=== PATIENT | female | born 1995 | race Caucasian/White ===

== ENCOUNTER 2016-08-15 05:41 | Outpatient (CLI) | payer MEDICAID ==
[2016-08-15] MEDS ORDERED: LACTATED RINGERS 500 ML IV ONE ×2 (06:02→06:33)
[2016-08-15 06:08] VITALS: BP 103/55
[2016-08-15] MEDS ORDERED: LACTATED RINGERS 1,000 ML IV SCH (07:00)
[2016-08-15] MEDS ORDERED: TYLENOL PO PRN (07:25)
--- NOTE | 2016-08-15 07:31 | Ultrasound Report ---
BIOPHYSICAL PROFILE: History: Abdominal pain after fall. Technique: Transabdominal ultrasound with Doppler interrogation. 2 - breathing movements 2 - movements 2 - posture and tone 2 - Qualitative amniotic fluid volume 8 - TOTAL SCORE OF POSSIBLE 8 Heart Rate (bpm) 139
--- NOTE | 2016-08-15 07:32 | Ultrasound Report ---
OB LIMITED History: Abdominal pain after fall Technique: Transabdominal ultrasound with Doppler interrogation. Gestation: Single Position: Cephalic Amniotic Fluid: Normal CARMEN = 17.0 cm Placenta: Anterior Placental Grade: 1 Heart Rate: 139 BPM Comment: No evidence for abruption.
== END 2016-08-15 08:07 | disposition home or self-care (01) ==
LOC: TRG 05:41
PROVIDERS: ATTEND Obstetrics & Gynecology Gynecology
DX: O26.892 Other specified pregnancy related conditions, second trimester (principal); R10.9 Unspecified abdominal pain; Z91.81 History of falling; Z3A.26 26 weeks gestation of pregnancy
CPT/HCPCS: 59025; 76815; 76819; J7120

== ENCOUNTER 2016-11-11 03:14 | Inpatient (IN) | payer MEDICAID ==
[2016-11-11] MEDS ORDERED: ZOFRAN IV PRN (05:49)
[2016-11-11] MEDS ORDERED: BRETHINE IVP PRN (05:49)
[2016-11-11] MEDS ORDERED: ePHEDrine SULFATE IV PRN ×2 (05:49→10:00)
[2016-11-11] MEDS ORDERED: XYLOCAINE 2% INFILTRATI ONE (05:49)
[2016-11-11] MEDS ORDERED: SUBLIMAZE IV PRN (05:49)
[2016-11-11] MEDS ORDERED: MINERAL OIL PO PRN (05:49)
--- NOTE | 2016-11-11 05:57 | History and Physical Report ---
History of Present Illness Date of examination: 11/11/16 (pt in early labor @ term; cervical chg in Triage after walking) Chief complaint: contractions History of present illness: EDC Confirmation: 11/10/2016 Gestational Age: 15 1/7 weeks Past History : 3 Term Births: 0 Premature Births: 0 Living Children: 0 Para: 0 Mult. Births: 0 Prev : 0 Aborta: 2 Elect. Ab: 0 Spont. Ab: 2 Ectopics: 0 # 1 Delivery date: 2013 Weeks Gestation: 8w Delivery type: SAB Comments: no D&C # 2 Delivery date: 09/2015 Weeks Gestation: 10w Delivery type: SAB Comments: no D&C Past Medical History JOHN Exposure: negative Infertility: negative Uterine Anomaly: negative Uterine Surgery (not C/S): negative Other Gynecologic Problems: negative Infection History Hx of STD: none HIV Risk Eval: no Hepatitis B Risk Eval: low risk Personal hx. of genital herpes: no Partner hx. of genital herpes: no Rash, Viral, or Febrile illness since last LMP? no Varicella/Chicken Pox Status: Unknown Genetic History Congenital Heart Defect: Mom: no Dad: no Carine Disease: Mom: no Dad: no Thalassemia Mom: no Dad: no Neural Tube Defect Mom: no Dad: no Down's Syndrome Mom: no Dad: no Rodger-Sachs Mom: no Dad: no Sickle Cell Disease/Trait Mom: no Dad: no Hemophilia Mom: no Dad: no Muscular Dystrophy Mom: no Dad: no Cystic Fibrosis Mom: no Dad: no [place] Chorea Mom: no Dad: no Mental Retardation Mom: no Dad: no Fragile X Mom: no Dad: no Other Genetic/Chromosomal Disorder Mom: no Dad: no Child w/other defect Mom: no Dad: no Enviromental Exposures Xray Exposure: no Medication, drug, or alcohol use since LMP: no Chemical/Other Exposure: no Exposure to Cat Liter: no Hx of Parvovirus (Fifth Disease): no Occupational Exposure to Children: none FALSECurrent Allergies: No known allergies Laboratory Results Date/Time Collected: 05/20/2016 Routine Urinalysis Leukocytes: negative Nitrite: negative Urobilinogen: negative Protein: negative Blood: negative Ketone: negative Bilirubin: negative Glucose: negative Review of Systems General Denies fever, chills, sweats, anorexia, fatigue, weakness, malaise, weight loss and sleep disorder. Denies nausea, vomiting, headache, swelling of legs, abdominal pain, vaginal discharge, vaginal bleeding and contractions. Denies vaginal discharge, incontinence, dysuria, hematuria, urinary frequency, amenorrhea, menorrhagia, abnormal vaginal bleeding, pelvic pain, genital sores, decreased libido, painful periods, painful sex, urinary urgency, hot flashes, vaginal dryness, vaginal itching and vaginal odor. CV Denies chest pains, palpitations, syncope, dyspnea on exertion, orthopnea, PND and peripheral edema. Resp Denies cough, dyspnea at rest, excessive sputum, hemoptysis, wheezing and pleurisy. GI Denies nausea, vomiting, diarrhea, constipation, change in bowel habits, abdominal pain, melena, hematochezia, jaundice, gas/bloating, indigestion/ heartburn, dysphagia and odynophagia. Endo Denies cold intolerance, heat intolerance, polydipsia, polyphagia, polyuria and unusual weight change. Breast Denies left breast lump, right breast lump, nipple discharge, bloody discharge from nipple, breast pain, abnormal mammogram and breast enlargement. MS Denies back pain, joint pain, joint swelling, muscle cramps, muscle weakness, stiffness, arthritis, sciatica, restless legs, leg pain at night and leg pain with exertion. Derm Denies rash, itching, dryness and suspicious lesions. Neuro Denies paralysis, paresthesias, headache, seizures, tremors, vertigo, transient blindness, frequent falls, frequent headaches and difficulty walking. Psych Denies depression, anxiety, irritability and mood swings. Eyes Denies blurring, diplopia, irritation, discharge, vision loss, eye pain and photophobia. ENT Denies earache, ear discharge, tinnitus, decreased hearing, nasal congestion, nosebleeds, sore throat and hoarseness. Allergy Denies urticaria, allergic rash, hay fever and recurrent infections. Heme Denies abnormal bruising, bleeding and enlarged lymph nodes. 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 Ht: sono size: AGA FHT: + Past History - Obstetrical History Expected Date of Delivery: 11/10/16 Actual Gestation: 40 Week(s) 1 Day(s) : 3 Para: 0 Hx # Term Pregnancies: 0 Spontaneous Abortions: 2 Number of Living Children: 0 Medications and Allergies Allergies Allergy/AdvReac Type Severity Reaction Status Date / Time No Known Allergies Allergy Verified 04/29/13 11:18 Home Medications Medication Instructions Recorded Confirmed Last Taken Type No Known Home Medications [No 08/15/16 08/15/16 Unknown History Reported Home Medications] - Vital Signs Vital signs: Vital Signs Pulse Pulse Ox 115 H 75 L 11/11/16 03:33 11/11/16 03:33 Temp Pulse Resp BP Pulse Ox 96 H 115/66 99 11/11/16 05:21 11/11/16 03:36 11/11/16 05:21 - Physical Exam Breasts: Positive: deferred Cardiovascular: Regular rate, Normal S1, Normal S2 Lungs: Positive: Normal air movement Abdomen: Positive: normal appearance, soft, normal bowel sounds. Negative: distention, tenderness Genitourinary (Female): Positive: normal external genitalia, normal perenium Vulva: both: normal Vagina: Positive: normal moisture. Negative: discharge Cervix: Negative: lesion, discharge Uterus: Positive: normal size, normal contour Adnexa: both: normal Anus/Rectum: Positive: normal perianal skin, heme negative. Negative: rectal mass, hemorrhoids Extremities: Positive: normal Deep Tendon Reflex Grade: Normal +2 - Obstetrical FHR: auscultation normal, category 1 Uterine Contraction Monitor Mode: External Cervical Dilatation: 3.5 (per flame cutter) Cervical Effacement Percentage: 80 station: -1 Uterine Contraction Frequency (min): 2-6 Uterine Contraction Duration: 50 Uterine Contraction Pattern: Regular Uterine Contraction Intensity: Mild Results All other labs normal. Laboratory Data-Patient Name: ELVIA BOWERS Test Date Result Blood Type 06/03/2016 A Rh 06/03/2016 Positive Antibody Screen negative Rubella 06/03/2016 nonimmune Serology (RPR) 10/12/2016 NR HBsAg 06/03/2016 Negative Hemoglobin 07/28/2016 11.4 Hematocrit 07/28/2016 34.6 Platelets 06/03/2016 259 [id number] Chlamydia DNA 10/12/2016 Negative GC DNA/Culture 10/12/2016 Urine Culture 07/01/2016 Final report Group B Strep cult negative PAP HIV 10/12/2016 AFP/Quad Screen 05/20/2016 Glucola Test 3hr GTT (Fasting) 08/12/2016 75 1 hr 08/12/2016 93 2 hr 08/12/2016 109 3 hr 08/12/2016 72 [facility]-Patient Name:ELVIA BOWERS Test Date Result Varicella Ab Sickle Cell 06/03/2016 Negative PPD Fibronectin Cystic Fibrosis Parvovirus TSH Free T4 Hepatitis C ALT AST Uric Acid Creatinine 24 hr Urine Protein SUZANNE Assessment and Plan 21yo @ 40w1d in early active labor Cervical change noted by flame cutter after pt ambulated X 1 hour. GBS negative Admission orders in EMR.
[2016-11-11] MEDS ORDERED: PITOCin/NS 20 UNIT/1000ML DRIP 20 UNITS/1,000 ML BAG IV SCH ×2 (06:00→16:15)
[2016-11-11] MEDS ORDERED: PITOCin/NS 30 UNIT/500ML 30 UNITS/500 ML BAG IV SCH (06:00)
[2016-11-11 06:41] LABS: Hemoglobin 12.3 gm/dl (10.1-14.3); Mean Corpuscular HGB Conc 33 % (30-34); Mean Corpuscular Hemoglobin 30 pg (28-32); Mean Corpuscular Volume 89 fl (79-97); Platelet Count 223 K/mm3 (140-440); Red Blood Count 4.14 M/mm3 (3.65-5.03); Red Cell Distribution Width 15.9 % (13.2-15.2); White Blood Count 8.9 K/mm3 (4.5-11.0)
[2016-11-11] MEDS: LACTATED RINGERS 1,000 ML IV SCH ×2 (07:20→08:28)
[2016-11-11] MEDS ORDERED: ePHEDrine SULFATE ONE (08:48)
[2016-11-11] MEDS ORDERED: XYLOCAINE MPF 2% ONE (09:44)
--- NOTE | 2016-11-11 09:52 | Anesthesia Consultation ---
Anesthesia Consult and Med Hx Date of service: 11/11/16 - Airway Anesthetic Teeth Evaluation: Good ROM Head & Neck: Adequate Mental/Hyoid Distance: Adequate Mallampati Class: Class II Intubation Access Assessment: Probably Good - Pre-Operative Health Status ASA Pre-Surgery Classification: ASA2 Proposed Anesthetic Plan: Epidural, Spinal - Pulmonary Hx Asthma: No COPD: No Hx Pneumonia: No - Cardiovascular System Hx Hypertension: No Hx Heart Attack/AMI: No Hx Valvular Heart Disease: No - Central Nervous System Hx Seizures: No CVA: No Hx Psychiatric Problems: No - Endocrine Hx Renal Disease: No Hx End Stage Renal Disease: No Hx Liver Disease: No Hx Hypothyroidism: No Hx Hyperthyroidism: No - Hematic Hx Anemia: No Hx Sickle Cell Disease: No - Other Systems Hx Alcohol Use: No Hx Substance Use: No Hx Cancer: No
[2016-11-11] MEDS ORDERED: fentaNYL-BUPIV 2 MCG/ML-0.125% 200 MCG/100 ML BAG EPIDURAL SCH (10:00)
[2016-11-11] MEDS ORDERED: NARCAN 2 MG/2 ML IV PRN (10:30)
--- NOTE | 2016-11-11 10:31 | Progress Note ---
Assessment and Plan Patient doing well, no complaints. AROM - clear/bloody fluid. ctx mild-moderate intensity, rn to start ordered pitocin. Continue current plan and anticipate . - Patient Problems (1) 40 weeks gestation of Current Visit: Yes Status: Acute (2) Active labor Current Visit: Yes Status: Acute Subjective - Subjective Date of service: 11/11/16 Principal diagnosis: IUP @ 40+3, labor, epidural Patient reports: no new complaints (comfortable with epidural) Objective - Vital Signs Vital Signs: Vital Signs - 12hr 11/11/16 11/11/16 11/11/16 03:33 03:35 03:36 Temperature Pulse Rate 115 H 100 H 61 Respiratory Rate Blood Pressure 115/66 O2 Sat by Pulse 75 L 76 L 82 L Oximetry 11/11/16 11/11/16 11/11/16 03:37 03:38 03:39 Temperature Pulse Rate 156 H 278 H 170 H Respiratory Rate Blood Pressure O2 Sat by Pulse 82 L 82 L 82 L Oximetry 11/11/16 11/11/16 11/11/16 03:41 03:42 03:43 Temperature Pulse Rate 313 H 264 H 271 H Respiratory Rate Blood Pressure O2 Sat by Pulse 82 L 82 L 82 L Oximetry 11/11/16 11/11/16 11/11/16 03:44 05:21 06:41 Temperature Pulse Rate 83 96 H 96 H Respiratory Rate Blood Pressure O2 Sat by Pulse 82 L 99 96 Oximetry 11/11/16 11/11/16 11/11/16 06:46 06:49 06:51 Temperature Pulse Rate 85 85 77 Respiratory Rate Blood Pressure O2 Sat by Pulse 96 92 96 Oximetry 11/11/16 11/11/16 11/11/16 06:56 06:58 07:01 Temperature Pulse Rate 73 78 82 Respiratory Rate Blood Pressure O2 Sat by Pulse 98 94 99 Oximetry 11/11/16 11/11/16 11/11/16 07:10 07:13 07:15 Temperature Pulse Rate 83 82 80 Respiratory Rate Blood Pressure O2 Sat by Pulse 95 94 99 Oximetry 11/11/16 11/11/16 11/11/16 07:20 07:25 07:30 Temperature Pulse Rate 77 86 90 Respiratory Rate Blood Pressure O2 Sat by Pulse 93 88 94 Oximetry 11/11/16 11/11/16 11/11/16 07:35 07:40 07:42 Temperature Pulse Rate 76 79 85 Respiratory Rate Blood Pressure O2 Sat by Pulse 99 97 90 Oximetry 11/11/16 11/11/16 11/11/16 07:45 07:49 07:50 Temperature Pulse Rate 64 76 87 Respiratory Rate Blood Pressure O2 Sat by Pulse 98 92 99 Oximetry 11/11/16 11/11/16 11/11/16 07:55 08:00 08:02 Temperature Pulse Rate 74 89 69 Respiratory Rate Blood Pressure 119/73 O2 Sat by Pulse 99 98 Oximetry 11/11/16 11/11/16 11/11/16 08:05 08:08 08:10 Temperature 96.8 F L Pulse Rate 75 86 Respiratory 20 Rate Blood Pressure O2 Sat by Pulse 100 98 Oximetry 11/11/16 11/11/16 11/11/16 08:15 08:20 08:25 Temperature Pulse Rate 77 83 85 Respiratory Rate Blood Pressure O2 Sat by Pulse 98 98 98 Oximetry 11/11/16 11/11/16 11/11/16 08:30 08:35 08:40 Temperature Pulse Rate 84 79 77 Respiratory Rate Blood Pressure O2 Sat by Pulse 99 99 99 Oximetry 11/11/16 11/11/16 11/11/16 08:45 08:50 08:55 Temperature Pulse Rate 88 86 82 Respiratory Rate Blood Pressure O2 Sat by Pulse 99 97 99 Oximetry 11/11/16 11/11/16 11/11/16 08:59 09:00 09:05 Temperature Pulse Rate 77 81 71 Respiratory Rate Blood Pressure O2 Sat by Pulse 94 98 98 Oximetry 11/11/16 11/11/16 11/11/16 09:10 09:24 09:27 Temperature Pulse Rate 71 85 88 Respiratory Rate Blood Pressure 178/127 122/56 O2 Sat by Pulse 98 Oximetry 11/11/16 11/11/16 11/11/16 09:28 09:30 09:32 Temperature Pulse Rate 88 82 75 Respiratory Rate Blood Pressure 111/57 122/63 116/60 O2 Sat by Pulse 100 92 Oximetry 11/11/16 11/11/16 11/11/16 09:34 09:35 09:36 Temperature Pulse Rate 73 77 73 Respiratory Rate Blood Pressure 110/66 118/74 O2 Sat by Pulse 98 Oximetry 11/11/16 11/11/16 11/11/16 09:38 09:40 09:44 Temperature Pulse Rate 72 66 67 Respiratory Rate Blood Pressure 109/60 O2 Sat by Pulse 99 92 Oximetry 11/11/16 11/11/16 11/11/16 09:45 09:50 09:55 Temperature Pulse Rate 77 75 75 Respiratory Rate Blood Pressure O2 Sat by Pulse 98 88 96 Oximetry 11/11/16 11/11/16 11/11/16 09:56 10:00 10:05 Temperature Pulse Rate 76 78 77 Respiratory Rate Blood Pressure 120/68 O2 Sat by Pulse 96 96 Oximetry 11/11/16 11/11/16 11/11/16 10:09 10:10 10:15 Temperature Pulse Rate 71 84 78 Respiratory Rate Blood Pressure 110/59 O2 Sat by Pulse 97 97 Oximetry 11/11/16 11/11/16 10:20 10:25 Temperature Pulse Rate 72 64 Respiratory Rate Blood Pressure 114/61 O2 Sat by Pulse 98 Oximetry - Exam Breasts: normal Cardiovascular: Regular rate Lungs: Clear to auscultation, Normal air movement Abdomen: Present: normal appearance, soft Vulva: both: normal Uterus: Present: normal FHR: auscultation normal, category 1 Uterine Contraction Monitor Mode: External Cervical Dilatation: 6.5 Cervical Effacement Percentage: 90 station: 0 Uterine Contraction Pattern: Regular Uterine Tone Measurement Phase: Contraction Uterine Contraction Intensity: Moderate Extremities: normal - Labs Labs: Abnormal Labs 11/11/16 06:00 RDW 15.9 H Laboratory Results - last 24 hr 11/11/16 11/11/16 06:00 06:00 WBC 8.9 RBC 4.14 Hgb 12.3 Hct 37.0 MCV 89 MCH 30 MCHC 33 RDW 15.9 H Plt Count 223 Blood Type A POSITIVE CHRISTOPHER Antibody Screen Negative
--- NOTE | 2016-11-11 13:53 | Procedure Note ---
OB Delivery Note - Delivery Date of Delivery: 11/11/16 Protein Chemist: ALLIE OLEARY Estimated blood loss: other (350) - Vaginal Delivery presentation: vertex Delivery position: OP Intrapartum events: none Delivery induction: none Delivery augmentation: rupture of membranes, pitocin Delivery monitor: external FHT, external uterine Route of delivery: Delivery placenta: spontaneous Delivery cord: 3 umbilical vessels Episiotomy: none Delivery laceration: 1st degree Delivery repair: vicryl Anesthesia: epidural Delivery comments: female infant del over intact perineum direct OP, 's left arm delivered prior to body. placed skin to skin, 3 vessel cord clamped and cut. Placenta del intact and complete. 1st degree lac repaired with 3-[address] in the usual fashion. 's weight 7#6oz, apgars 8/9, EBL 350. mother and infant remain LDR stable. - A at 1 minute: 8 at 5 minutes: 9 Infant Gender: Female (7#6)
[2016-11-11] MEDS ORDERED: NORCO 5/325 PO PRN (16:15)
[2016-11-11] MEDS ORDERED: SODIUM CHLORIDE FLUSH SYRINGE 10 ML IV SCH (16:15)
[2016-11-11] MEDS ORDERED: TUCKS PAD TP PRN (16:15)
[2016-11-11] MEDS ORDERED: MILK OF MAGNESIA PO PRN (16:15)
[2016-11-11] MEDS ORDERED: PHENERGAN PO PRN (16:15)
[2016-11-11] MEDS ORDERED: TYLENOL PO PRN (16:15)
[2016-11-11] MEDS ORDERED: DULCOLAX PR PRN (16:15)
[2016-11-11] MEDS ORDERED: BENADRYL PO PRN (16:15)
[2016-11-11] MEDS ORDERED: DERMOPLAST TP PRN (16:15)
[2016-11-11] MEDS ORDERED: LANSINOH TP PRN (16:15)
[2016-11-11] MEDS: MOTRIN PO SCH ×2 (18:48→23:22)
[2016-11-11] MEDS: COLACE PO SCH (21:27)
[2016-11-12 03:20] LABS: Hematocrit 32.7 % (30.3-42.9); Hemoglobin 10.8 gm/dl (10.1-14.3)
[2016-11-12] MEDS ORDERED: BOOSTRIX IM ONE (05:00)
[2016-11-12] MEDS: MOTRIN PO SCH ×3 (05:12→23:46)
[2016-11-12] MEDS: COLACE PO SCH ×2 (08:30→22:07)
[2016-11-12] MEDS ORDERED: PRENATAL VITAMIN PO SCH (10:00)
--- NOTE | 2016-11-12 11:42 | Progress Note ---
Assessment and Plan - Patient Problems (1) Vaginal delivery Onset Date: ~11/11/16 Current Visit: Yes Status: Acute (2) 40 weeks gestation of Current Visit: Yes Status: Acute Subjective - Subjective Date of service: 11/12/16 Principal diagnosis: IUP @ 40+3, labor, epidural Interval history: no probs pp, Hct 32 Patient reports: appetite normal, voiding normally, pain well controlled, ambulating normally [place]: doing well Objective - Vital Signs Latest vital signs: Vital Signs Temp Pulse Pulse Resp BP BP Pulse Ox 11/12/16 08:31 97.9 F 64 22 90/52 11/12/16 00:33 98.0 F 70 18 106/61 11/11/16 20:13 99.3 F 70 18 100/61 11/11/16 15:50 98.5 F 76 20 102/59 11/11/16 15:00 98.5 F 18 11/11/16 14:42 74 114/66 11/11/16 14:27 67 108/59 11/11/16 14:12 83 119/62 11/11/16 13:58 85 132/99 11/11/16 13:50 98.1 F 20 11/11/16 13:34 77 109/72 11/11/16 13:20 98 H 98 11/11/16 13:15 84 97 11/11/16 13:10 88 100 11/11/16 13:05 83 98 11/11/16 13:04 94 H 107/71 11/11/16 13:00 72 98 11/11/16 12:55 70 98 11/11/16 12:50 75 98 11/11/16 12:45 83 97 11/11/16 12:40 79 97 11/11/16 12:35 69 98 11/11/16 12:33 68 101/57 11/11/16 12:30 68 97 11/11/16 12:25 70 98 11/11/16 12:20 68 97 11/11/16 12:15 74 98 11/11/16 12:10 69 97 11/11/16 12:05 76 109/59 98 11/11/16 12:00 84 97 11/11/16 11:55 87 96 11/11/16 11:50 71 96 11/11/16 11:45 73 96 Intake and Output 11/11/16 11/12/16 11/12/16 22:59 06:59 14:59 Intake Total 985 240 Output Total 1400 Balance -415 240 Intake: IV 625 PITOCin/NS 20 UNIT/1000ML 250 DRIP 20 units In 1,000 ml @ 125 mls/hr IV DIRECT ANUSHKA Rx#:[id number] PITOCin/NS 20 UNIT/1000ML 375 DRIP 20 units In 1,000 ml @ 250 mls/hr IV DIRECT ANUSHKA Rx#:[id number] Oral 360 240 Output: Urine 1400 Void 1400 Other: Total, Intake Amount 120 240 Total, Output Amount 600 # Voids Void 1 1 - Exam Breasts: Present: deferred Lungs: Present: Normal air movement Abdomen: Present: normal appearance, soft Uterus: Present: firm Extremities: Present: normal
[2016-11-12] MEDS ORDERED: FLUARIX QUAD 2016-2017(36 MOS+) IM ONE (12:00)
[2016-11-12] MEDS ORDERED: M-M-R II VACCINE SUB-Q ONE (17:06)
[2016-11-13] MEDS: MOTRIN PO SCH (05:44)
--- NOTE | 2016-11-13 10:34 | Discharge Summary ---
Providers - Providers Date of Admission: 11/11/16 06:05 Date of discharge: 11/13/16 Attending physician: KATIE MATHUR 11/11/16 16:15 Consult to Industrial Gas Production Operator [CONS] Routine Reason For Exam: assistance with , SNS Primary care physician: KATIE MATHUR Hospitalization Reason for admission: active labor, IUP at term Delivery: Episiotomy: none Laceration: 1st degree Other procedures: none complications: none Discharge diagnosis: IUP at term delivered baby: female Pertinent studies: Hct 32 Hospital course: , nl pp course Condition at discharge: Good Disposition: DISCHARGED TO HOME OR SELFCARE - Discharge Diagnoses (1) Vaginal delivery Status: Acute (2) 40 weeks gestation of Status: Acute Plan - Discharge Medications Prescriptions: Ibuprofen [Motrin 600 MG tab] 600 mg PO Q8H PRN #30 tablet PRN Reason: Pain - Provider Discharge Summary Activity: no sex for 6 weeks, no heavy lifting 4 weeks, no strenuous exercise Diet: routine Instructions: routine Additional instructions: [] Smoking cessation referral if applicable(refer to patient education folder for contact #) [] Refer to [facility] Booklet Call your doctor immediately for: * Fever > 100.5 * Heavy vaginal bleeding ( >1 pad per hour) * Severe persistent headache * Shortness of breath * Reddened, hot, painful area to leg or breast * Drainage or odor from incision. * Keep incision clean and dry at all times and follow doctor's instructions regarding bathing/showering - Follow up plan Follow up: KATIE MATHUR MD [Primary Care Provider] - 7 Days
[2016-11-13 12:49] VITALS: BP 100/70
== END 2016-11-13 12:00 | disposition home or self-care (01) | DRG 775 ==
LOC: TRG 03:14 → LD 06:05 → TRG 06:05 → OB 16:07
PROVIDERS: ADMIT Obstetrics & Gynecology; ATTEND Obstetrics & Gynecology
PROC: 0HQ9XZZ Repair Perineum Skin, External Approach (ICD-10-PCS; principal; 2016-11-11)
PROC: 10E0XZZ Delivery of Products of Conception, External Approach (ICD-10-PCS; 2016-11-11)
PROC: 3E0S3CZ (ICD-10-PCS; 2016-11-11)
PROC: 00HU33Z Insertion of Infusion Device into Spinal Canal, Percutaneous Approach (ICD-10-PCS; 2016-11-11)
DX: O70.0 First degree perineal laceration during delivery (principal); Z3A.40 40 weeks gestation of pregnancy; Z37.0 Single live birth
CPT/HCPCS: 36415; 85014; 85018; 85027; 86592; 86850; 86900; 86901; 90471; 90686; 90707; 90715; 99211; A6250; G0463; J2590; J7120

== ENCOUNTER 2018-07-28 20:14 | Inpatient (IN) | payer MEDICAID ==
[2018-07-28] MEDS ORDERED: BRETHINE IVP PRN (20:58)
[2018-07-28] MEDS ORDERED: SUBLIMAZE IV PRN (20:58)
[2018-07-28] MEDS ORDERED: BRETHINE SUB-Q PRN (20:58)
[2018-07-28] MEDS ORDERED: XYLOCAINE 2% INFILTRATI ONE (20:58)
[2018-07-28] MEDS ORDERED: MINERAL OIL PO PRN (20:58)
[2018-07-28] MEDS ORDERED: ZOFRAN IV PRN (20:58)
[2018-07-28] MEDS ORDERED: LACTATED RINGERS 1,000 ML IV SCH (21:00)
[2018-07-28] MEDS ORDERED: PITOCin/NS 20 UNIT/1000ML DRIP 20 UNITS/1,000 ML BAG IV SCH (21:00)
--- NOTE | 2018-07-28 21:03 | History and Physical Report ---
History of Present Illness Date of examination: 07/28/18 Chief complaint: labor at term History of present illness: EDC Confirmation: 07/26/2018 Past History : 4 Past Medical History Abnormal PAP: negative JOHN Exposure: negative Infertility: negative Uterine Anomaly: negative Uterine Surgery (not C/S): negative Other Gynecologic Problems: negative Infection History Hx of STD: none HIV Risk Eval: low risk Hepatitis B Risk Eval: low risk Personal hx. of genital herpes: no Partner hx. of genital herpes: no Rash, Viral, or Febrile illness since last LMP? no Varicella/Chicken Pox Status: Immunized TB Risk: no Genetic History Congenital Heart Defect: Mom: no Dad: no Carine Disease: Mom: no Dad: no Thalassemia Mom: no Dad: no Neural Tube Defect Mom: no Dad: no Down's Syndrome Mom: no Dad: no Rodger-Sachs Mom: no Dad: no Sickle Cell Disease/Trait Mom: no Dad: no Hemophilia Mom: no Dad: no Muscular Dystrophy Mom: no Dad: no Cystic Fibrosis Mom: no Dad: no [place] Chorea Mom: no Dad: no Mental Retardation Mom: no Dad: no Fragile X Mom: no Dad: no Other Genetic/Chromosomal Disorder Mom: no Dad: no Child w/other defect Mom: no Dad: no Enviromental Exposures Xray Exposure: no Medication, drug, or alcohol use since LMP: no Chemical/Other Exposure: no Exposure to Cat Liter: no Occupational Exposure to Children: none Active Medications (reviewed today): PLUS 27-1 MG ORAL TABLET ( VIT-FE FUMARATE-FA) 1 po Current Allergies (reviewed today): No known allergies Past History Past Medical History: other (see HPIs) Past Surgical History: other (see HPI) 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) Family/Genetic History: other (see HPI) - Obstetrical History Expected Date of Delivery: 07/26/18 Actual Gestation: 40 Week(s) 2 Day(s) : 4 Para: 1 Hx # Term Pregnancies: 1 Number of Pregnancies: 0 Spontaneous Abortions: 2 Induced : 0 Number of Living Children: 1 Medications and Allergies Allergies Allergy/AdvReac Type Severity Reaction Status Date / Time No Known Allergies Allergy Verified 04/29/13 11:18 Home Medications Medication Instructions Recorded Confirmed Last Taken Type Ibuprofen [Motrin 600 MG tab] 600 mg PO Q8H PRN #30 tablet 11/12/16 Unknown Rx Active Meds: Active Medications Ephedrine Sulfate (Ephedrine Sulfate) 10 mg IV Q2M PRN PRN Reason: Hypotension Fentanyl (Sublimaze) 100 mcg IV Q2H PRN PRN Reason: Labor Pain Lactated Ringer's (Lactated Ringers) 1,000 mls @ 125 mls/hr IV DIRECT ANUSHKA Oxytocin/Sodium Chloride (Pitocin/Ns 20 Unit/1000ml Drip) 20 units in 1,000 mls @ 125 mls/hr IV DIRECT ANUSHKA Lidocaine (Xylocaine 2%) 20 ml INFILTRATI ONCE ONE Stop: 07/28/18 20:59 Mineral Oil (Mineral Oil) 30 ml PO QHS PRN PRN Reason: Constipation Ondansetron HCl (Zofran) 4 mg IV Q8H PRN PRN Reason: Nausea And Vomiting Terbutaline Sulfate (Brethine) 0.25 mg SUB-Q ONCE PRN PRN Reason: Hyperstimulation/Hypertonicity Terbutaline Sulfate (Brethine) 0.25 mg IVP ONCE PRN PRN Reason: Hyperstimulation/Hypertonicity Review of Systems All systems: negative - Vital Signs Vital signs: Vital Signs Pulse BP 87 117/71 07/28/18 20:35 07/28/18 20:35 Temp Pulse Resp BP Pulse Ox 98.9 F 87 18 117/71 07/28/18 20:45 07/28/18 20:45 07/28/18 20:45 07/28/18 20:45 - Physical Exam Breasts: Positive: normal Cardiovascular: Regular rate Lungs: Positive: Clear to auscultation, Normal air movement Abdomen: Positive: normal appearance, soft Genitourinary (Female): Positive: normal external genitalia, normal perenium Vulva: both: normal Vagina: Positive: normal moisture Adnexa: both: normal Anus/Rectum: Positive: normal perianal skin Extremities: Positive: normal Deep Tendon Reflex Grade: Normal +2 - Obstetrical FHR: category 1 Uterine Contraction Monitor Mode: External Cervical Dilatation: 8 (BBOW) Cervical Effacement Percentage: 100 station: -1 Uterine Contraction Frequency (min): 3-4 Uterine Contraction Duration: 60-80 Uterine Contraction Pattern: Regular Uterine Tone Measurement Phase: Contraction Uterine Contraction Intensity: Strong/Firm Results All other labs normal. Assessment and Plan 22y/o @ 40+2 arrived in active labor 6cms. Admission orders in EMR. GBS neg. complicated by late PNC @ 33wks. anticipate . - Patient Problems (1) 40 weeks gestation of Current Visit: No Status: Acute (2) Active labor Current Visit: No Status: Acute
[2018-07-28 21:52] LABS: Hematocrit 35.3 % (30.3-42.9); Hemoglobin 12.2 gm/dl (10.1-14.3); Mean Corpuscular HGB Conc 35 % (30-34); Mean Corpuscular Volume 86 fl (79-97); Platelet Count 274 K/mm3 (140-440); Red Blood Count 4.11 M/mm3 (3.65-5.03); Red Cell Distribution Width 16.6 % (13.2-15.2)
--- NOTE | 2018-07-28 22:49 | Procedure Note ---
OB Delivery Note - Delivery Date of Delivery: 07/28/18 () Mill Roll Operator: ALLIE OLEARY Estimated blood loss: 300cc - Vaginal Delivery presentation: vertex Delivery position: OA Intrapartum events: none Delivery induction: none Delivery augmentation: rupture of membranes Delivery monitor: external FHT, external uterine Route of delivery: Delivery placenta: spontaneous Delivery cord: 3 umbilical vessels Episiotomy: none Delivery laceration: 1st degree Anesthesia: none Delivery comments: male del over intact perineum, no shoulder dystocia, placed skin to skin on mother's abdomen. 3 vessel cord clamped and cut. Placenta del intact and complete. pit to IVF. 1st degree lac hemostatic and approximated, discussed repair with local or allowing natural healing as laceration is small and bot bleeding. patient requested no repair. EBL 300, apgars 8/9, wt 8#6oz. mother and LDR stable. - A at 1 minute: 8 at 5 minutes: 9 Gender: Male (8#6oz)
[2018-07-29] MEDS ORDERED: DERMOPLAST TP PRN
[2018-07-29] MEDS ORDERED: PHENERGAN PO PRN
[2018-07-29] MEDS ORDERED: BENADRYL PO PRN
[2018-07-29] MEDS ORDERED: LANSINOH TP PRN
[2018-07-29] MEDS ORDERED: SODIUM CHLORIDE FLUSH SYRINGE 10 ML IV NR
[2018-07-29] MEDS ORDERED: TYLENOL PO PRN
[2018-07-29] MEDS ORDERED: PITOCin/NS 20 UNIT/1000ML DRIP 20 UNITS/1,000 ML BAG IV SCH
[2018-07-29] MEDS ORDERED: TUCKS PAD TP PRN
[2018-07-29] MEDS ORDERED: MILK OF MAGNESIA PO PRN
[2018-07-29] MEDS ORDERED: DULCOLAX PR PRN
[2018-07-29] MEDS: IBUPROFEN PO SCH ×4 (00:48→23:42)
[2018-07-29] MEDS ORDERED: PRENATAL VITAMIN PO SCH (10:00)
--- NOTE | 2018-07-29 11:28 | Progress Note ---
Assessment and Plan 21 y.o. S/P PPD1. Patient reports feeling well, no complaints. Fundus is firm, ML, U/1. Bleeding is scant. Reports pain is well controlled with IBU. is going well. 1st degree laceration healing well, well approximated. Patient declines circumcision for . Interested in Paragard IUD . Desires discharge tomorrow. Will continue to monitor and continue POC. Subjective - Subjective Date of service: 07/29/18 Patient reports: appetite normal, voiding normally, pain well controlled, ambulating normally : doing well Objective - Vital Signs Latest vital signs: Vital Signs Temp Pulse Resp BP BP Pulse Ox 07/29/18 09:55 98.2 F 75 18 102/60 07/29/18 06:53 18 07/29/18 06:26 18 07/29/18 05:02 98.3 F 70 18 109/69 98 07/29/18 01:48 18 07/29/18 00:48 18 07/29/18 00:36 98.4 F 76 18 122/70 95 07/28/18 23:47 98.2 F 07/28/18 23:44 96 H 118/71 07/28/18 22:56 92 H 118/64 07/28/18 22:43 83 116/77 07/28/18 21:51 98.4 F 95 H 16 135/72 07/28/18 21:46 95 H 135/72 07/28/18 20:45 98.9 F 87 18 117/71 07/28/18 20:35 87 117/71 Intake and Output 07/28/18 07/29/18 07/29/18 23:59 07:59 15:59 Intake Total 480 320 Output Total 200 600 Balance 280 -280 Intake: Oral 480 320 Output: Urine 200 600 Void 200 600 Other: Total, Intake Amount 120 320 Total, Output Amount 200 600 # Voids Void 1 Weight 90.265 kg Estimated Blood Loss 300 - Exam Breasts: Present: normal Cardiovascular: Present: Regular rate, Normal S1, Normal S2 Lungs: Present: Clear to auscultation Abdomen: Present: normal appearance, soft Vulva: both: normal Uterus: Present: normal, firm Extremities: Present: normal - Labs Labs: Abnormal lab results 07/28/18 Range/Units 21:40 MCHC 35 H (30-34) % RDW 16.6 H (13.2-15.2) %
[2018-07-29 11:39] LABS: Hematocrit 31.1 % (30.3-42.9); Hemoglobin 10.2 gm/dl (10.1-14.3)
--- NOTE | 2018-07-30 05:51 | Discharge Summary ---
Providers - Providers Date of Admission: 07/28/18 21:06 Date of discharge: 07/30/18 (pt agrees with d/c) Attending physician: KATIE MATHUR Primary care physician: KATIE MATHUR Hospitalization Reason for admission: active labor Delivery: Episiotomy: none Laceration: none Incision: normal Other procedures: none complications: none Discharge diagnosis: IUP at term delivered [place] baby: male (declines circumcision) Hospital course: uncomplicated vaginal delivery Pt w/o complaint VSS FF below umb Lochia small H&H stable No s/sx of anemia Doing well s/p vag delivery P: d/c today with instructions RTO 4 weeks PP care Condition at discharge: Good Disposition: DC-01 TO HOME OR SELFCARE - Discharge Diagnoses (1) Vaginal delivery Status: Acute Plan - Provider Discharge Summary Activity: routine, no sex for 6 weeks, no heavy lifting 4 weeks, no strenuous exercise Diet: routine Instructions: routine Additional instructions: [] Smoking cessation referral if applicable(refer to patient education folder for contact #) [] Refer to [facility] Booklet Call your doctor immediately for: * Fever > 100.5 * Heavy vaginal bleeding ( >1 pad per hour) * Severe persistent headache * Shortness of breath * Reddened, hot, painful area to leg or breast * Drainage or odor from incision. * Keep incision clean and dry at all times and follow doctor's instructions regarding bathing/showering - Follow up plan Follow up: KATIE MATHUR MD [Primary Care Provider] - 08/27/18 (Congratulations! Please call [phone] to schedule your appointment in 4 weeks. Motrin/ibuprofen for pain/cramping. Call with concerns.)
[2018-07-30] MEDS ORDERED: BOOSTRIX IM ONE (06:00)
[2018-07-30] MEDS: IBUPROFEN PO SCH (06:14)
[2018-07-30 09:08] VITALS: BP 104/61
== END 2018-07-30 15:30 | disposition home or self-care (01) | DRG 775 ==
LOC: TRG 20:14 → LD 21:06 → OB 23:58
PROVIDERS: ADMIT Obstetrics & Gynecology; ATTEND Obstetrics & Gynecology
PROC: 10E0XZZ Delivery of Products of Conception, External Approach (ICD-10-PCS; principal; 2018-07-28)
PROC: 3E0234Z Introduction of Serum, Toxoid and Vaccine into Muscle, Percutaneous Approach (ICD-10-PCS; 2018-07-30)
DX: O70.0 First degree perineal laceration during delivery (principal); Z3A.40 40 weeks gestation of pregnancy; Z37.0 Single live birth; Z23 Encounter for immunization
CPT/HCPCS: 36415; 85014; 85018; 85027; 86592; 86850; 86900; 86901; 90471; 90715; G0378; A6250; J2590; J7120

== ENCOUNTER 2020-04-17 05:51 | Day surgery (SDC) | payer MEDICAID ==
--- NOTE | 2020-04-16 21:40 | History and Physical Report ---
History of Present Illness Date of examination: 04/13/20 History of present illness: Patient has been reassessed/reevaluated. H&P has been reviewed. No interval changes. Patient desires sterilization. Discussed with various methods of contraceptives including abstinence, barrier and hormonal. Discussed oral, implantable, dermal, injectable,intravaginal and intrauterine methods. Patient declined temporary contraceptives. Discuss the permanency of sterilization. High risk of regret and 0.5 to 1% risk of failure. Questions answered Patient understands and desires to proceed. Vital Signs: Patient Profile: 24 Years Old Female LMP: 03/23/2020 Height: 63 inches Weight: 177 pounds BMI: 31.35 Temp: 98.7 degrees F BP sittin / 80 (left arm) Menstrual History: LMP (date): 03/23/2020 On BCP's at conception: no Current Method of Contraception: None Past History : 5 Term Births: 3 Premature Births: 0 Living Children: 3 Para: 3 Mult. Births: 0 Prev : 0 Aborta: 2 Elect. Ab: 0 Spont. Ab: 2 Ectopics: 0 # 1 Delivery date: 2013 Weeks Gestation: 8w Delivery type: SAB Comments: no D&C # 2 Delivery date: 09/2015 Weeks Gestation: 10w Delivery type: SAB Comments: no D&C # 3 Delivery date: 11/11/2016 Weeks Gestation: 40+3 Delivery type: Vaginal Anesthesia type: epidural Delivery location: [facility] Infant Sex: female weight: 7.38 Name: Liv Comments: none # 4 Delivery date: 07/28/2018 Weeks Gestation: 40+2 Delivery type: Vaginal Hours of labor: 8 Anesthesia type: none Delivery location: [facility] Sex: male weight: 8.38 Name: Lucio Comments: none # 5 Delivery date: 10/12/2019 Weeks Gestation: 41 Delivery type: Vaginal Hours of labor: 5 Anesthesia type: epidural Delivery location: [facility] Infant Sex: male weight: 8.94 Name: Hussain OLIVEIRA History Uterine Surgery (not C/S): negative Operations: negative Anesthesia Complications: negative Abnormal PAP: negative Uterine Anomaly: negative JOHN Exposure: negative Infertility: negative Infection History HIV Risk Eval: no TB exposure: no Personal hx. of genital herpes: no Partner hx. 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 Risk Factors: Smoked Tobacco Use: Never smoker Smokeless Tobacco Use: Never Passive smoke exposure: no Drug use: no HIV high-risk behavior: no Caffeine use: 1 drinks per day Alcohol use: no Exercise: yes Times per week: 5 Seatbelt use: 100 % Review of Systems General Denies fever, chills, sweats, anorexia, fatigue, weakness, malaise, weight loss and sleep disorder. Denies vaginal discharge, incontinence, dysuria, hematuria, urinary frequency, amenorrhea, menorrhagia, abnormal vaginal bleeding, pelvic pain, genital sores, decreased libido, painful periods, painful sex, urinary urgency, hot flashes, vaginal dryness, vaginal itching and vaginal odor. CV Denies chest pains, palpitations, syncope, dyspnea on exertion, orthopnea, PND and peripheral edema. Resp Denies cough, dyspnea at rest, excessive sputum, hemoptysis, wheezing and pleurisy. GI Denies nausea, vomiting, diarrhea, constipation, change in bowel habits, abdominal pain, melena, hematochezia, jaundice, gas/bloating, indigestion/heartburn, dysphagia and odynophagia. Breast Denies left breast lump, right breast lump, nipple discharge, bloody discharge from nipple, breast pain, abnormal mammogram and breast enlargement. Psych Denies depression, anxiety, irritability and mood swings. Past History Past Medical History: other (SEE HPI FOR DETAILS) Past Surgical History: Other (SEE HPI FOR DETAILS) Social history: full code, other (SEE HPI FOR DETAILS) Family history: other (SEE HPI FOR DETAILS) Medications and Allergies Allergies Allergy/AdvReac Type Severity Reaction Status Date / Time No Known Allergies Allergy Verified 04/10/20 15:55 Home Medications Medication Instructions Recorded Confirmed Last Taken Type No Known Home Medications [No 04/10/20 04/10/20 Unknown History Reported Home Medications] Active Meds: Active Medications Acetaminophen (Tylenol) 1,000 mg PO PREOP ANUSHKA Stop: 04/17/20 22:00 Gabapentin (Gabapentin) 300 mg PO PREOP NR Stop: 04/17/20 22:00 Lactated Ringer's (Lactated Ringers) 1,000 mls @ 100 mls/hr IV DIRECT ANUSHKA Stop: 04/17/20 23:59 Midazolam HCl (Versed) 2 mg IV PREOP NR Stop: 04/17/20 22:00 Review of Systems Constitutional: other (SEE HPI FOR DETAILS) Exam - Physical Exam Narrative exam: HEENT: normocephalic, no lesions or deformities Skin no abnormal lesions or rashes Chest: respiratory effort normal, clear to auscultation CV: regular, normal S1-S2, no murmur, no rub, no gallop Abdomen: soft, non-tender, no masses Neuro: no gross anomalities Extremities: no clubbing, cyanosis, or edema 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 Cervix: normal appearance, no lesions. Uterus: normal size and position, midline, mobile Adnexae: no masses or tenderness Rectovaginal: exam defered Results - Labs CBC & Chem 7: 04/17/20 06:40 Assessment and Plan - Patient Problems (1) Encounter for sterilization Current Visit: No Status: Acute Plan to address problem: Patient desires sterilization. Patient declined temporary contraceptives. Discuss the permanency of sterilization. High risk of regret and 0.5 to 1% risk of failure. Discussed possible ovarian cancer prevention benefit of salpingectomy with its increased risks of blood loss vs partial salpingectomy. Questions answered Patient understands and desires to proceed with salpingectomy
[2020-04-17] MEDS ORDERED: LACTATED RINGERS 1,000 ML IV SCH (06:00)
[2020-04-17] MEDS ORDERED: ACETAMINOPHEN 500 MG TAB PO SCH (06:00)
[2020-04-17] MEDS ORDERED: MIDAZOLAM 2 MG/2 ML INJ IV NR (06:00)
[2020-04-17] MEDS ORDERED: GABAPENTIN 300 MG CAP PO NR (06:00)
[2020-04-17] MEDS ORDERED: BUPIVACAINE/PF (0.5%) 5 MG/1 ML 30 ML VIAL INFILTRATI ONE ×2 (06:20→08:18)
[2020-04-17 06:49] LABS: Basophils % (Auto) 0.5 % (0.0-1.8); Eosinophils # (Auto) 0.2 K/mm3 (0.0-0.4); Eosinophils % (Auto) 3.3 % (0.0-4.3); Lymphocytes # (Auto) 1.8 K/mm3 (1.2-5.4); Lymphocytes % (Auto) 35.3 % (13.4-35.0); Mean Corpuscular HGB Conc 36 % (30-34); Mean Corpuscular Volume 88 fl (79-97); Monocytes # (Auto) 0.3 K/mm3 (0.0-0.8); Monocytes % (Auto) 5.8 % (0.0-7.3); Platelet Count 216 K/mm3 (140-440); Red Blood Count 4.44 M/mm3 (3.65-5.03); Red Cell Distribution Width 13.1 % (13.2-15.2)
[2020-04-17 06:51] LABS: Hematocrit 38.9 % (30.3-42.9)
[2020-04-17] MEDS ORDERED: SCOPOLAMINE TRANSDERMAL PATCH 72 HR TD ONE (07:21)
[2020-04-17] MEDS ORDERED: HYDROmorphone 1 MG/1 ML INJ IV PRN (07:31)
[2020-04-17] MEDS ORDERED: ONDANSETRON 4 MG/2 ML INJ IV PRN (07:31)
--- NOTE | 2020-04-17 07:31 | Anesthesia Day of Surgery ---
Anesthesia Day of Surgery - Day of Surgery Patient Examined: Yes Patient H&P Reviewed: Yes Patient is NPO: Yes
--- NOTE | 2020-04-17 07:31 | Anesthesia Consultation ---
Anesthesia Consult and Med Hx Date of service: 04/17/20 - Airway Anesthetic Teeth Evaluation: Good ROM Head & Neck: Adequate Mental/Hyoid Distance: Adequate Mallampati Class: Class I Intubation Access Assessment: Good - Pulmonary Exam CTA: Yes - Cardiac Exam Cardiac Exam: RRR - Pre-Operative Health Status ASA Pre-Surgery Classification: ASA1 Proposed Anesthetic Plan: General - Pulmonary Hx Smoking: No Hx Respiratory Symptoms: No - Cardiovascular System Hx Hypertension: No Hx Heart Attack/AMI: No - Central Nervous System CVA: No - Endocrine Hx Renal Disease: No Hx Liver Disease: No Hx Insulin Dependent Diabetes: No Hx Non-Insulin Dependent Diabetes: No Hx Thyroid Disease: No - Hematic Hx Anemia: No - Other Systems Hx Obesity: Yes (BMI 30) - Additional Comments Anesthesia Medical History Comments: No prior GA. No FHx anesthetic compl ications.
[2020-04-17] MEDS ORDERED: ONDANSETRON 4 MG/2 ML INJ ONE (07:32)
[2020-04-17] MEDS ORDERED: LIDOCAINE MPF (2%) 20 MG/1 ML VIAL 5 ML ONE (07:32)
[2020-04-17] MEDS ORDERED: fentaNYL 100 MCG/2 ML INJ ONE (07:32)
[2020-04-17] MEDS ORDERED: dexAMETHasone 20 MG/5 ML VIAL ONE (07:32)
[2020-04-17] MEDS ORDERED: ROCURONIUM 50 MG/5 ML INJ IV ONE (07:32)
[2020-04-17] MEDS ORDERED: propofoL 200 MG/20 ML VIAL IV ONE (07:33)
[2020-04-17] MEDS ORDERED: NEOSTIGMINE 10MG/10 ML INJ MDV ONE (08:18)
[2020-04-17] MEDS ORDERED: KETOROLAC 30 MG/1 ML INJ ONE (08:18)
[2020-04-17] MEDS ORDERED: GLYCOPYRROLATE 0.4 MG/2 ML INJ ONE (08:18)
--- NOTE | 2020-04-17 08:43 | Operative Report ---
Operative Report Operative Report: Date of procedure:[] Pre-operative diagnosis: Patient desires permanent sterilization Post-operative diagnosis: Same Procedure name(s): Laparoscopic bilateral salpingectomy Surgeon: Leno North MD Knife Grinder: [] Anesthesia: General endotracheal EBL: Minimal Complications: None Findings: Patient with uterus approximately 8-10 weeks in size with normal fallopian tubes bilaterally Specimen(s): Bilateral fallopian tubes Patient was brought in the operating room. General anesthesia was induced without difficulty. She was placed in dorsal lithotomy position. Prepped and draped in usual sterile manner. Her urinary bladder with was emptied with a red rubber catheter. Speculum placed in her vagina and Sargis uterine manipulator was placed for uterine manipulation without difficulty. Attention was then switched to the patient's abdomen. An infra-umbilical incision was made with a scalpel. This incision was spread with a hemostat. A 5 mm trocar was placed in this incision while lifting high the abdominal wall. Intra-abdominal presence was verified directly with the laparoscope. The patient was then insufflated to approximately 3 L of CO2 gas. The patient's findings as noted above. An accessory puncture was made suprapubically. The 8 mm trocar was placed through this incision under direct visualization with no evidence of internal organ damage. Each of the fallopian tube were identified by its fimbriated end. Starting with the right fallopian tube approximately 1 to 2 cm from the cornea LigaSure device was used to cross sectional cut the tube. From this point the ligature device was used to cauterize and cut the mesosalpinx until the fimbriated end was reached detaching the tube. The fallopian tube was then removed through the accessory port attention was then switched to the contralateral tube. Same procedure was performed detaching that tube and removed it through the accessory port. The remaining stump was inspected and found to be hemostatic. At this time all instruments were removed. The patient was de-insufflated. The skin incisions were closed subcuticularly with 4-0 Vicryl. Marcaine was injected into the surgical incisions, for postoperative pain relief. The patient tolerated procedure well. She was awakened in the ope rating room and accompanied to the recovery room in good condition.
--- NOTE | 2020-04-17 08:46 | Short Stay Summary ---
Short Stay Documentation Date of service: 04/17/20 - History H&P: dictated Past Medical History: other (SEE HPI FOR DETAILS) Past Surgical History: Other (SEE HPI FOR DETAILS) Social history: full code, other (SEE HPI FOR DETAILS) - Allergies and Medications Current Medications: Allergies No Known Allergies Allergy (Verified 04/10/20 15:55) Home Medications Medication Instructions Recorded Confirmed Last Taken Type RX: No Known Home Medications [No 04/10/20 04/10/20 Unknown History Reported Home Medications] Active Medications Acetaminophen (Tylenol) 1,000 mg PO PREOP ANUSHKA Stop: 04/17/20 22:00 Last Admin: 04/17/20 06:35 Dose: 1,000 mg Documented by: Gabapentin (Gabapentin) 300 mg PO PREOP NR Stop: 04/17/20 22:00 Last Admin: 04/17/20 06:35 Dose: 300 mg Documented by: Hydromorphone HCl (Dilaudid) 0.5 mg IV Q10MIN PRN PRN Reason: Pain , Severe (7-10) Stop: 04/17/20 23:00 Lactated Ringer's (Lactated Ringers) 1,000 mls @ 100 mls/hr IV DIRECT ANUSHKA Stop: 04/17/20 23:59 Last Admin: 04/17/20 06:40 Dose: 100 mls/hr Documented by: Midazolam HCl (Versed) 2 mg IV PREOP NR Stop: 04/17/20 22:00 Last Admin: 04/17/20 07:24 Dose: 2 mg Documented by: Ondansetron HCl (Zofran) 4 mg IV ONCE PRN PRN Reason: Nausea And Vomiting Stop: 04/17/20 23:00 - Physical exam General appearance: no acute distress Integumentary: no rash HEENT: Atraumatic Lungs: Normal air movement Breasts: deferred Heart: Regular rate Gastrointestinal: tenderness (Appropriate postop), distended (Appropriate post laparoscopy) Female Genitourinary: normal Rectal Exam: deferred Extremities: no ischemia, pulses intact - Brief post op/procedure progress note Date of procedure: 04/17/20 (See operative note for details) - Hospital course Hospital course: Patient was admitted underwent the above him procedure without any complications. Patient will be discharged with follow-up in office in 1-2 weeks for postop check. - Disposition Condition at discharge: Good Disposition: DC-01 TO HOME OR SELFCARE - Discharge Diagnoses (1) Encounter for sterilization Status: Acute Short Stay Discharge Plan Activity: no restrictions, advance as tolerated Diet: regular Wound: open to air Additional Instructions: Patient to call office for fever, chills, nausea, vomiting or pain not controlled by pain medication. Prescriptions: Ibuprofen [Motrin] 800 mg PO TID PRN #30 tablet PRN Reason: Pain oxyCODONE /ACETAMINOPHEN [Percocet 5/325 mg] 1 - 2 tab PO Q6HR PRN #10 tablet PRN Reason: Pain
[2020-04-17] MEDS ORDERED: oxyCODONE /ACETAMINOPHEN 5-325MG TAB PO SCH (09:00)
[2020-04-17 10:52] VITALS: BP 106/50
--- NOTE | 2020-04-17 11:27 | Post Anesthesia Evaluation ---
- Post Anesthesia Evaluation Patient Participated: Yes Airway Patent: Yes Stable Respiratory Function: Yes Nausea/Vomiting: No Temp > 96.8F: Yes Pain Manageable: Yes Adequeate Hydration: Yes Anesthesia Complications: No
== END 2020-04-17 05:52 | disposition home or self-care (01) ==
LOC: OR 05:51
PROVIDERS: ATTEND Obstetrics & Gynecology
DX: Z30.2 Encounter for sterilization (principal); N93.9 Abnormal uterine and vaginal bleeding, unspecified; E66.9 Obesity, unspecified; Z98.890 Other specified postprocedural states; Z79.899 Other long term (current) drug therapy; Z68.30 Body mass index [BMI] 30.0-30.9, adult
CPT/HCPCS: 36415; 58670; 81025; 85025; 88302; J1100; J1885; J2250; J2405; J2704; J2710; J3010; J7120